=== PATIENT | female | born 1995 | race Caucasian/White ===

== ENCOUNTER 2017-03-31 18:02 | Emergency (ER) | payer MEDICAID ==
[~2017-03-31] VITALS: Ht 154.9 cm; Wt 60.8 kg
[2017-03-31 18:05] VITALS: BP 119/54
== END 2017-03-31 18:37 | disposition home or self-care (01) ==
LOC: ED 18:31
DX: K02.9 Dental caries, unspecified (principal)
CPT/HCPCS: 99283

== ENCOUNTER 2017-11-02 12:57 | Emergency (ER) | payer MEDICAID ==
[~2017-11-02] VITALS: Ht 154.9 cm; Wt 65.9 kg
[2017-11-02 13:03] VITALS: BP 125/80
[2017-11-02] MEDS ORDERED: DEXAMETHASONE 4 MG TABLET PO STA (14:13)
[2017-11-02] MEDS ORDERED: DEXAMETHASONE 4 MG TABLET ONE (14:16)
== END 2017-11-02 15:31 | disposition home or self-care (01) ==
LOC: ED 15:15
DX: J20.8 Acute bronchitis due to other specified organisms (principal); B97.89 Other viral agents as the cause of diseases classified elsewhere
CPT/HCPCS: 71046; 87081; 87880; 99285

== ENCOUNTER 2017-11-06 17:10 | Emergency (ER) | payer MEDICAID ==
[~2017-11-06] VITALS: Ht 157.5 cm; Wt 64.2 kg
[2017-11-06 17:21] VITALS: BP 123/83
[2017-11-06] MEDS ORDERED: CARBAMIDE PEROXIDE EAR DROPS 6.5%, 15ML EACH EAR ONE (18:00)
[2017-11-06] MEDS ORDERED: DEXAMETHASONE 4 MG TABLET PO ONE (18:00)
[2017-11-06] MEDS ORDERED: DEXAMETHASONE 4 MG TABLET ONE (18:14)
[2017-11-06] MEDS ORDERED: CARBAMIDE PEROXIDE EAR DROPS 6.5%, 15ML ONE (18:14)
== END 2017-11-06 20:23 | disposition home or self-care (01) ==
LOC: ED 18:09
DX: H61.23 Impacted cerumen, bilateral (principal); J02.8 Acute pharyngitis due to other specified organisms
CPT/HCPCS: 69209; 87081; 87880; 99284

== ENCOUNTER 2018-07-07 17:30 | Emergency (ER) | payer MEDICAID ==
[~2018-07-07] VITALS: Ht 157.5 cm; Wt 65.9 kg
[2018-07-07 17:36] VITALS: BP 121/88
[2018-07-07] MEDS ORDERED: DEXAMETHASONE 4 MG TABLET PO ONE (18:00)
[2018-07-07] MEDS ORDERED: DEXAMETHASONE 4 MG TABLET ONE (18:15)
[2018-07-07] MEDS ORDERED: IBUPROFEN 200 MG TABLET PO ONE (18:30)
[2018-07-07] MEDS ORDERED: IBUPROFEN 200 MG TABLET ONE (18:31)
== END 2018-07-07 18:53 | disposition home or self-care (01) ==
LOC: ED 18:47
DX: J02.0 Streptococcal pharyngitis (principal)
CPT/HCPCS: 87081; 87880; 99284

== ENCOUNTER 2018-09-12 06:25 | Emergency (ER) | payer MEDICAID ==
[~2018-09-12] VITALS: Ht 157.5 cm; Wt 65.7 kg
[2018-09-12 06:26] VITALS: BP 120/42
[2018-09-12] MEDS ORDERED: LIDOCAINE-MPF 1%, 5ML ONE (06:55)
[2018-09-12] MEDS ORDERED: LIDOCAINE 1%, 10ML INFIL ONE (07:00)
--- NOTE | 2018-09-12 07:17 | NUR ---
Patient/Caregiver given discharge instructions and they have confirmed that they understand the instructions. Patient ambulatory with steady gait. PT LEFT WITH ALL PERSONAL BELONGINGS.
== END 2018-09-12 07:30 | disposition home or self-care (01) ==
LOC: ED 07:00
DX: L03.012 Cellulitis of left finger (principal)
CPT/HCPCS: 26010; 99283

== ENCOUNTER 2019-04-15 01:21 | Emergency (ER) | payer MEDICAID ==
[~2019-04-15] VITALS: Ht 154.9 cm; Wt 68.5 kg
[2019-04-15 03:13] VITALS: BP 94/59
== END 2019-04-15 03:48 | disposition home or self-care (01) ==
LOC: ED 03:30
DX: O98.511 Other viral diseases complicating pregnancy, first trimester (principal); B34.9 Viral infection, unspecified; Z3A.01 Less than 8 weeks gestation of pregnancy
CPT/HCPCS: 36415; 71046; 80053; 81001; 83605; 84145; 85025; 86308; 87081; 87086; 87400; 87880; 93005; 96374; 99284; J2405; J7030

== ENCOUNTER 2019-07-07 12:04 | Emergency (ER) | payer MEDICAID ==
[~2019-07-07] VITALS: Ht 157.5 cm; Wt 67.0 kg
[2019-07-07 12:16] VITALS: BP 105/75
[2019-07-07 13:21] LABS: RAPID INFLUENZA A Negative (Negative); RAPID INFLUENZA B POSITIVE (Negative)
--- NOTE | 2019-07-07 14:04 | NUR ---
Patient/Caregiver given discharge instructions and they have confirmed that they understand the instructions. Patient ambulatory with steady gait. pt left with all personal belongings.
== END 2019-07-07 14:06 | disposition home or self-care (01) ==
LOC: ED 12:55
DX: J10.1 Influenza due to other identified influenza virus with other respiratory manifestations (principal); O99.512 Diseases of the respiratory system complicating pregnancy, second trimester; Z3A.17 17 weeks gestation of pregnancy
CPT/HCPCS: 71046; 87400; 99284

== ENCOUNTER 2019-12-02 15:03 | Emergency (ER) | payer MEDICAID ==
[~2019-12-02] VITALS: Ht 157.5 cm; Wt 75.9 kg
--- NOTE | 2019-12-02 15:25 | NUR ---
PT A&OX4, RESP EVEN & UNLABORED, SPEECH CLEAR & SOFT, SKIN WNL. C/O MIGRAINE, STARTED ABOUT 1430 TODAY. NO PAIN MED TAKEN. DENIES N/V. HX: MIGRAINE. CURRENTLY : EDT 12/05/2019. AB0
[2019-12-02] MEDS ORDERED: SODIUM CHLORIDE FLUSH 10ML SYR IVF ONE (15:30)
[2019-12-02] MEDS ORDERED: METOCLOPRAMIDE 5 MG/ML, 2ML IVPush ONE (15:30)
[2019-12-02] MEDS ORDERED: DIPHENHYDRAMINE 50 MG/ML, 1ML IVPush ONE (15:30)
--- NOTE | 2019-12-02 15:30 | NUR ---
CORRECTION "EDC" NOT "EDT"
[2019-12-02] MEDS ORDERED: PRENATAL VITAMIN (15:31)
[2019-12-02] MEDS ORDERED: DIPHENHYDRAMINE 50 MG/ML, 1ML ONE (15:41)
[2019-12-02] MEDS ORDERED: METOCLOPRAMIDE 5 MG/ML, 2ML ONE (15:41)
--- NOTE | 2019-12-02 15:50 | NUR ---
BRE & DAVID GIVEN PER EMAR. PT RESTING ON GURNEY, SIDE RAIL UP X1, CALL LIGHT W/IN REACH. ROOM LIGHTS DIMMED, SPOUSE IN ROOM.
--- NOTE | 2019-12-02 16:20 | NUR ---
FACETOR: CALL TO L&D, L&D RN TO COME DOWN TO MONITOR BABY.
--- NOTE | 2019-12-02 16:37 | NUR ---
TYPEWRITERS FUNCTIONAL TESTER: L&D NURSE WOULD LIKE PT TO GO TO L&D UPON DC FROM ED.
--- NOTE | 2019-12-02 16:46 | NUR ---
PT ENDORSED TO BREAK RN: DONNA.
[2019-12-02 16:59] VITALS: BP 105/73
== END 2019-12-02 17:02 | disposition home or self-care (01) ==
LOC: ED 16:40
DX: O26.893 Other specified pregnancy related conditions, third trimester (principal); G43.009 Migraine without aura, not intractable, without status migrainosus; Z3A.40 40 weeks gestation of pregnancy
CPT/HCPCS: 96374; 96375; 99284; J1200; J2765

== ENCOUNTER 2019-12-08 10:59 | Emergency (ER) | payer MEDICAID ==
[~2019-12-08] VITALS: Ht 157.5 cm; Wt 71.2 kg
[~2019-12-08 10:59] MED LIST: PRENATAL VITAMIN
--- NOTE | 2019-12-08 11:28 | NUR ---
PT TO ED FOR GAYTAN X2 DAYS SINCE EPIDURAL FOR CHILD BRTH 2 DAYS AGO. PT STATES WAS PRESCRIBED FIORICET, BUT IT DOES NOT HELP. PT STATES RELIEF WHILE LYING FLAT. PT ALSO ENDORSES PHOTOSENSITIVITY. PT CONNECTED TO MONITORS. VSS. NO NEEDS EXPRESSED AT THIS TIME. CALL LIGHT WITHIN REACH. AWAITING EDMD ASSESSMENT.
[2019-12-08 13:01] VITALS: BP 111/65
--- NOTE | 2019-12-08 13:06 | NUR ---
blood patch completed. pt resting in room, flat with lights dimmed. vss. no needs expressed. family at bs. call light within reach. per anesthesia, pt is to remain flat until 1330. Addendum: 12/08/19 at 1307 by [email or web address] blood patch completed. pt resting in room, flat with lights dimmed. vss. no needs expressed. family at bs. call light within reach. per anesthesia, pt is to remain flat until 1345.
--- NOTE | 2019-12-08 13:50 | NUR ---
Task RN: With reassessment patient reports headache improved to 0/10 from 10/10. No increase in pain with ambulation Educated on blood patch precautions, sxs to watch for
== END 2019-12-08 14:18 | disposition home or self-care (01) ==
LOC: ED 11:38
DX: G97.1 Other reaction to spinal and lumbar puncture (principal); G43.909 Migraine, unspecified, not intractable, without status migrainosus
CPT/HCPCS: 99281

== ENCOUNTER 2019-12-08 22:50 | Emergency (ER) | payer MEDICAID ==
[~2019-12-08] VITALS: Ht 157.5 cm; Wt 71.2 kg
--- NOTE | 2019-12-08 23:12 | NUR ---
PT RESTING ON GURNEY, MONITORS APPLIED, SIDERAILS UP X2, CALL LIGHT WITHIN REACH. AWAITING ERP EVAL AND ORDERS
[2019-12-08] MEDS ORDERED: MORPHINE SULFATE 4 MG/ML, 1ML IVPush PRN (23:30)
[2019-12-08] MEDS ORDERED: ONDANSETRON ODT 4 MG PO ONE (23:30)
[2019-12-08] MEDS ORDERED: ONDANSETRON 2MG/ML, 2ML ONE (23:32)
[2019-12-08] MEDS ORDERED: MORPHINE SULFATE 4 MG/ML, 1ML ONE (23:32)
--- NOTE | 2019-12-08 23:41 | NUR ---
PT TO MRI
[2019-12-08 23:49] LABS: BASOPHILS # (AUTO) 0.03 x10^3/uL (0-0.1); BASOPHILS % (AUTO) 0 % (0-1); EOSINOPHILS # (AUTO) 0.17 x10^3/uL (0-0.4); EOSINOPHILS % (AUTO) 2 % (1-7); LYMPHOCYTES # (AUTO) 2.52 x10^3/uL (1-3.4); LYMPHOCYTES % (AUTO) 22 % (22-44); MD NO; MEAN CORPUSCULAR HEMOGLOBIN 25.6 pg (27.0-34.8); MEAN CORPUSCULAR HGB CONC 32.1 g/dL (32.4-35.8); MEAN CORPUSCULAR VOLUME 79.7 fL (80-100); MEAN PLATELET VOLUME 8.2 fL (7.4-10.4); MONOCYTES # (AUTO) 0.91 x10^3/uL (0.2-0.8); MONOCYTES % (AUTO) 8 % (2-9); NEUTROPHILS # (AUTO) 7.98 x10^3/uL (1.8-6.8); NEUTROPHILS % (AUTO) 69 % (42-75); PLATELET COUNT 203 x10^3/uL (130-400); RED BLOOD COUNT 4.11 x10^6/uL (3.82-5.3); RED CELL DISTRIBUTION WIDTH 15.4 % (9.6-15.2)
[2019-12-08 23:51] LABS: HCT (SEDRATE) 32.7 % (34.6-47.8)
[2019-12-08] MEDS ORDERED: GADOTERATE 10 MMOL/20 ML SYR ONE (23:52)
[2019-12-08 23:57] LABS: ALBUMIN 2.2 g/dL (3.4-5.0); ANION GAP 8 mmol/L (5-15); CALCIUM 8.3 mg/dL (8.5-10.1); CHLORIDE 109 mmol/L (98-107); CREATININE 0.55 mg/dL (0.55-1.02)
[2019-12-09] MEDS ORDERED: ONDANSETRON 2MG/ML, 2ML IVPush ONE
--- NOTE | 2019-12-09 00:28 | NUR ---
PT UP TO RR WITH SLOW STEADY GAIT, FAMILY AT HER SIDE, URINE CP PROVIDED FOR SAMPLE.
[2019-12-09 01:01] LABS: MICROSCOPIC AUTO
[2019-12-09 01:09] LABS: CULTURE INDICATED? YES
[2019-12-09] MEDS ORDERED: CEFDINIR 300 MG CAPSULE ONE (01:24)
[2019-12-09 01:26] VITALS: BP 99/63
--- NOTE | 2019-12-09 01:27 | NUR ---
PT MEDICATEED PER MAR
[2019-12-09] MEDS ORDERED: CEFDINIR 300 MG CAPSULE PO ONE (01:30)
== END 2019-12-09 02:49 | disposition home or self-care (01) ==
LOC: ED 23:37
DX: O86.21 Infection of kidney following delivery (principal); M54.5 Low back pain; R51 Headache
CPT/HCPCS: 36415; 72158; 80048; 81001; 82040; 85025; 85651; 86140; 87077; 87086; 96374; 96375; 99285; A9575; J2270; J2405; 87186

== ENCOUNTER 2020-07-25 15:19 | Emergency (ER) | payer MEDICAID ==
[~2020-07-25] VITALS: Ht 157.5 cm; Wt 67.0 kg
--- NOTE | 2020-07-25 16:48 | NUR ---
CONTINUING EDUCATION DIRECTOR: PT TO ROOM FROM LOBBY
--- NOTE | 2020-07-25 16:55 | NUR ---
PER PT PRODUCTIVE COUGH & SORE THROAT X FOUR DAYS. PT RESTING IN GURNEY, NO NEEDS AT THIS TIME. CARDIAC MONITORING & CONT PULSE OX IN PLACE, NAD NOTED AT THIS TIME. WILL CONTINUE TO MONITOR.
--- NOTE | 2020-07-25 17:13 | NUR ---
PT RESTING IN JIM[place] SANTILL[place] PA AT BEDSIDE.
[2020-07-25] MEDS ORDERED: DEXAMETHASONE 4 MG TABLET ONE (17:27)
[2020-07-25] MEDS ORDERED: DEXAMETHASONE 4 MG TABLET PO ONE (17:30)
[2020-07-25 18:46] VITALS: BP 125/79
== END 2020-07-25 19:13 | disposition home or self-care (01) ==
LOC: ED 16:00
DX: J06.9 Acute upper respiratory infection, unspecified (principal); Z20.828 Contact with and (suspected) exposure to other viral communicable diseases; R06.02 Shortness of breath; J35.1 Hypertrophy of tonsils; R59.0 Localized enlarged lymph nodes
CPT/HCPCS: 71045; 87081; 87635; 87880; 99284